=== PATIENT | male | born 1965 | race Caucasian/White ===

== ENCOUNTER 2017-01-04 10:50 | Observation (INO) | payer SELFPAY ==
[~2017-01-04] VITALS: Ht 177.8 cm; Wt 90.0 kg
[~2017-01-04 10:50] MED LIST: MMW SWISH-SWAL; ZITH250T PO
[2017-01-04 10:52] VITALS: BP 190/105; PULSE 108; RESP 20; TEMP 98.3; O2SAT 99
[2017-01-04 10:55] VITALS: BP 177/98; PULSE 106; RESP 18; TEMP 97.4; O2SAT 100
[2017-01-04] MEDS ORDERED: SUBO8MIS SL (11:05)
--- NOTE | 2017-01-04 11:17 | PD ---
HPI Chief Complaint: Numbness/Tingling Time Seen by Provider: 11:17 Travel History International Travel<30 days: No Contact w/Intl Traveler<30days: No Traveled to known affect area: No History of Present Illness HPI 51-year-old male with history of anxiety, tobacco dependency, on Suboxone for remote opiate addiction, presents to the emergency department for evaluation of left upper extremity weakness. Patient states he woke up at 5 AM this morning and his left arm was "asleep." He thought he had slept on it wrong however his symptoms have not improved. He states he is unable to move it regularly as he usually does and it "feels weird." Denies any pain. No chest Tightness. No difficulty breathing. Patient recalls no head trauma. He has not had a headache but he does report some blurred vision when he is "scanning a room." Denies any recent drug use. He denies any other significant medical history. He states he is under a lot of stress due to his being hospitalized at [facility] following a stroke. He has no other symptoms to report. [facility] Past Medical History Anxiety: Yes Diabetes: No Diminished Hearing: No Medical other: Yes (OPIOID ADDICTION PREVIOUSLY) Tetanus Vaccination: > 5 Years Influenza Vaccination: No Past Surgical History Tonsillectomy: Yes (ADENOIDS) Social History Alcohol Use: No Tobacco Use: Yes (1 PPD) Substance Use: No Allergies-Medications (Allergen,Severity, Reaction): Coded Allergies: No Known Allergies (Verified , 01/04/17) Reported Meds & Prescriptions Reported Meds & Active Scripts Active Reported Suboxone Sublingual Film (Buprenorphine-Naloxone Sublingual Film) 8-2 Mg Film 1 Film SL Unique ID number required: Review of Systems Except as stated in HPI: all other systems reviewed are Neg Physical Exam Narrative GENERAL: Well-nourished male patient, in no acute distress. Patient is ambulatory with a nonantalgic gait. SKIN: Focused skin assessment warm/dry. HEAD: Atraumatic. Normocephalic. EYES: Pupils equal and round. EOMI. No scleral icterus. No injection or drainage. ENT: No nasal bleeding or discharge. Mucous membranes pink and moist. NECK: Trachea midline. No JVD. CARDIOVASCULAR: Elevated rate and rhythm. No murmur appreciated. RESPIRATORY: No accessory muscle use. Clear to auscultation. Breath sounds equal bilaterally. GASTROINTESTINAL: Abdomen soft, non-tender, nondistended. Hepatic and splenic margins not palpable. MUSCULOSKELETAL: No obvious deformities. No clubbing. No cyanosis. No edema. NEUROLOGICAL: Awake and alert. Patient does have difficulty puffing out his left cheek however there are no other cranial nerve deficits and patient states it is "just a weird thing for him to do." Sensation is symmetrical. Patient has motor movement intact in the right upper and lower extremity. The left upper extremity has gross motor movement with significant decreased gas controller strength. No fine motor movement. Patient is unable to fully extend his left wrist. Normal speech. PSYCHIATRIC: Appropriate mood and affect; insight and judgment normal. Data Data Last Documented VS Vital Signs Date Time Temp Pulse Resp B/P Pulse Ox O2 Delivery O2 Flow Rate FiO2 01/04/17 11:37 18 100 Room Air 01/04/17 11:00 104 01/04/17 10:55 97.4 177/98 Orders Electrocardiogram (01/04/17 11:26) Prothrombin Time / Inr (Pt) (01/04/17 11:26) Act Partial Throm Time (Ptt) (01/04/17 11:26) Complete Blood Count With Diff (01/04/17 11:26) Comprehensive Metabolic Panel (01/04/17 11:26) Creatine Kinase (Cpk) (01/04/17 11:26) Drug Screen, Random Urine (01/04/17 11:26) Troponin I (01/04/17 11:26) Urinalysis - C+S If Indicated (01/04/17 11:26) Ct Brain W/O Iv Contrast(Rout) (01/04/17 11:26) Chest, Single Ap (01/04/17 11:26) Ecg Monitoring (01/04/17 11:26) Iv Access Insert/Monitor (01/04/17 11:26) Oximetry (01/04/17 11:26) Sodium Chloride 0.9% Flush (Ns Flush) (01/04/17 11:30) Mra Brain W/O Contrast (Cow) (01/04/17 ) Mri Brain W/O Contrast (01/04/17 ) Mri C Spine W/O Contrast (01/04/17 ) Admit Order (Ed Use Only) (01/04/17 13:24) Spine, Cervical Compl([id number]) (01/04/17 ) Labs Laboratory Tests Test 01/04/17 11:15 White Blood Count 7.6 TH/MM3 Red Blood Count 4.27 MIL/MM3 Hemoglobin 14.0 GM/DL Hematocrit 41.8 % Mean Corpuscular Volume 98.0 FL Mean Corpuscular Hemoglobin 32.8 PG Mean Corpuscular Hemoglobin 33.5 % Concent Red Cell Distribution Width 13.5 % Platelet Count 275 TH/MM3 Mean Platelet Volume 7.5 FL Neutrophils (%) (Auto) 57.8 % Lymphocytes (%) (Auto) 25.9 % Monocytes (%) (Auto) 11.8 % Eosinophils (%) (Auto) 3.6 % Basophils (%) (Auto) 0.9 % Neutrophils # (Auto) 4.4 TH/MM3 Lymphocytes # (Auto) 2.0 TH/MM3 Monocytes # (Auto) 0.9 TH/MM3 Eosinophils # (Auto) 0.3 TH/MM3 Basophils # (Auto) 0.1 TH/MM3 CBC Comment DIFF FINAL Differential Comment Prothrombin Time 10.0 SEC Prothromb Time International 0.9 RATIO Ratio Activated Partial 26.8 SEC Thromboplast Time Sodium Level 137 MEQ/L Potassium Level 3.9 MEQ/L Chloride Level 104 MEQ/L Carbon Dioxide Level 27.4 MEQ/L Anion Gap 6 MEQ/L Blood Urea Nitrogen 20 MG/DL Creatinine 1.01 MG/DL Estimat Glomerular Filtration 78 ML/MIN Rate Random Glucose 243 MG/DL Calcium Level 8.7 MG/DL Total Bilirubin 0.5 MG/DL Aspartate Amino Transf 18 U/L (AST/SGOT) Alanine Aminotransferase 40 U/L (ALT/SGPT) Alkaline Phosphatase 73 U/L Total Creatine Kinase 106 U/L Troponin I LESS THAN 0.02 NG/ML Total Protein 6.5 GM/DL Albumin 3.7 GM/DL [facility] Medical Decision Making Medical Screen Exam Complete: Yes Emergency Medical Condition: Yes Medical Record Reviewed: Yes Differential Diagnosis CVA versus TIA versus radiculopathy versus neuropathy versus electrolyte abnormality versus neoplasm versus psychosomatic Narrative Course 51-year-old male presents to the emergency department for evaluation left upper extremity deficit. Patient is ambulatory with no difficulty however he does have gross motor movement at the left upper extremity there is significant decrease in gas controller strength in the left upper extremity. Exam is otherwise without acute concern. Vital signs are stable. CT imaging of the brain is without acute intracranial abnormality. Chest x-rays with no acute disease. CBC and CMP are without acute concern. Glucose is 243, despite patient stating he has no diabetic history. Troponin is less than 0.02. I discussed the patient in my attending physician who agrees patient does not meet stroke alert criteria based on timeframe. MRI, MRA has been ordered. 1245 Call has been placed to 1305 Repeat call has been placed to 1325 MRI/MRA has resulted with no acute abnormality. I discussed with my attending who agrees with continued neurologic deficit, patient should be admitted for further evaluation/ possible TIA or c-spine etiology [address] Yang. He requests MRI of cervical spine be ordered. Patient will be admitted observation to [facility]. Diagnosis Primary Impression: Left arm weakness Additional Impression: Left upper extremity numbness Admitting Information Admitting Physician Requests: Observation Condition: Stable Mervat Alba Jan 04, 2017 11:17
[2017-01-04] MEDS ORDERED: SODIUM CHLORIDE 0.9% FLUSH 10 ML FLUSH IVF PRN (11:30)
[2017-01-04 11:37] VITALS: RESP 18; O2SAT 100
[2017-01-04 11:45] LABS: AUTOMATED NEUTROPHIL # 4.4 TH/MM3 (1.8-7.7); BASOPHIL # 0.1 TH/MM3 (0-0.2); BASOPHIL % 0.9 % (0.0-2.0); EOSINOPHIL # 0.3 TH/MM3 (0-0.4); EOSINOPHIL % 3.6 % (0.0-4.0); HEMATOCRIT 41.8 % (39.0-51.0); HEMO FLAGS DIFF FINAL; LYMPH % 25.9 % (9.0-44.0); MEAN CORPUSCULAR HEMOGLOBIN 32.8 PG (27.0-34.0); MEAN CORPUSCULAR HGB CONC 33.5 % (32.0-36.0); MONO % 11.8 % (0.0-8.0); NEUT % 57.8 % (16.0-70.0); PLATELET COUNT 275 TH/MM3 (150-450); RED BLOOD COUNT 4.27 MIL/MM3 (4.50-5.90); RED CELL DISTRIBUTION WIDTH 13.5 % (11.6-17.2); WHITE BLOOD COUNT 7.6 TH/MM3 (4.0-11.0)
--- NOTE | 2017-01-04 11:48 | RADRPT ---
EXAM DATE/TIME: 01/04/2017 11:22 [facility] COMPARISON: No previous studies available for comparison. INDICATIONS : Chest and left arm pain MEDICAL HISTORY : None. SURGICAL HISTORY : None. ENCOUNTER: Initial ACUITY: 1 day PAIN SCORE: 2/10 LOCATION: Bilateral chest FINDINGS: A single view of the chest demonstrates the lungs to be symmetrically aerated without evidence of mas s, infiltrate or effusion. The cardiomediastinal contours are unremarkable. Osseous structures are intact. Nonacute left fifth posterior rib fracture. CONCLUSION: No acute disease. Darien Culp MD on January 04, 2017 at 11:46 Board Certified Radiologist. This report was verified electronically.
--- NOTE | 2017-01-04 11:50 | RADRPT ---
EXAM DATE/TIME: 01/04/2017 11:34 [facility] COMPARISON: CT BRAIN W/O CONTRAST, January 18, 2010, 3:31. INDICATIONS : Blurred vision. Left sided weakness. RADIATION DOSE: 56.35 CTDIvol (mGy) MEDICAL HISTORY : Opoid addiction. SURGICAL HISTORY : None. ENCOUNTER: Initial ACUITY: 1 day PAIN SCALE: 0/10 LOCATION: Bilateral cranial TECHNIQUE: Multiple contiguous axial images were obtained of the head. Using automated exposure control and adj ustment of the mA and/or kV according to patient size, radiation dose was kept as low as reasonably a chievable to obtain optimal diagnostic quality images. DICOM format image data is available electro nically for review and comparison. FINDINGS: CEREBRUM: The ventricles are normal for age. No evidence of midline shift, mass lesion, hemorrhage or acute in farction. No extra-axial fluid collections are seen. POSTERIOR FOSSA: The cerebellum and brainstem are intact. The 4th ventricle is midline. The cerebellopontine angle i s unremarkable. EXTRACRANIAL: The visualized portion of the orbits is intact. SKULL: The calvaria is intact. No evidence of skull fracture. CONCLUSION: Normal examination for a patient of this age. Darien Cupl MD on January 04, 2017 at 11:47 Board Certified Radiologist. This report was verified electronically.
[2017-01-04 11:57] LABS: ANION GAP 6 MEQ/L (5-15); AST (GOT) 18 U/L (15-37); BICARBONATE 27.4 MEQ/L (21.0-32.0); BLOOD UREA NITROGEN 20 MG/DL (7-18); CHLORIDE 104 MEQ/L (98-107); GLOMERULAR FILTRATION RATE 78 ML/MIN (>89); POTASSIUM 3.9 MEQ/L (3.5-5.1); SODIUM (NA) 137 MEQ/L (136-145)
[2017-01-04 11:59] LABS: ALT (GPT) 40 U/L (12-78)
[2017-01-04 12:02] LABS: ALKALINE PHOSPHATASE 73 U/L (45-117); CREATINE KINASE 106 U/L (39-308); TOTAL BILIRUBIN ADULT 0.5 MG/DL (0.2-1.0)
[2017-01-04 12:07] LABS: APTT (PATIENT) 26.8 SEC (24.3-30.1); INTERNATIONAL NORMALIZED RATIO 0.9 RATIO
--- NOTE | 2017-01-04 12:59 | RADRPT ---
EXAM DATE/TIME: 01/04/2017 12:35 [facility] COMPARISON: MRI BRAIN W/O CONTRAST, January 04, 2017, 12:35. CT BRAIN W/O CONTRAST, January 04, 2017, 11:34. INDICATIONS : Left upper extremity weakness. MEDICAL HISTORY : None. SURGICAL HISTORY : None. ENCOUNTER: Initial ACUITY: 1 day PAIN SCORE: 0/10 LOCATION: cranial Please note a normal MRA of the brain does not entirely exclude the possibility of a small aneurysm, nor the possibility of distal intracranial vessel disease. TECHNIQUE: 3D time of flight MRA was performed. Source images, multiplanar STS MIP, and 3D volume MIP reconstru ctions were reviewed. FINDINGS: There is excellent visualization of the major intracranial arteries out to the second-order branch ve ssels. There is no evidence for aneurysm, vessel truncation or stenosis, and no evidence for vascula r malformation. CONCLUSION: Normal examination. Darien Culp MD on January 04, 2017 at 12:56 Board Certified Radiologist. This report was verified electronically.
--- NOTE | 2017-01-04 13:00 | RADRPT ---
EXAM DATE/TIME: 01/04/2017 12:35 [facility] COMPARISON: No previous studies available for comparison. INDICATIONS : Left upper extremity weakness. MEDICAL HISTORY : None. SURGICAL HISTORY : None. ENCOUNTER: Initial ACUITY: 1 day PAIN SCORE: 0/10 LOCATION: TECHNIQUE: Multiplanar, multisequence MRI of the brain was performed without contrast. FINDINGS: CEREBRUM: The ventricles are normal for age. No evidence of midline shift, mass lesion, hemorrhage or acute in farction. No extraaxial fluid collections are seen. The pituitary gland and suprasellar cistern are normal in configuration. WHITE MATTER: No significant signal abnormalities are seen in the white matter. POSTERIOR FOSSA: The cerebellum and brainstem are intact. The 4th ventricle is midline. The cerebellopontine angle is unremarkable. The cerebellar tonsils are normal in position. DIFFUSION IMAGING: No focal areas of restricted diffusion are seen. No evidence of acute infarction. EXTRACRANIAL: The visualized portions of the orbits and paranasal sinuses are unremarkable. CONCLUSION: Normal examination for a patient of this age. Krishan Alonso MD on January 04, 2017 at 12:56 Board Certified Radiologist. This report was verified electronically.
--- NOTE | 2017-01-04 14:43 | RADRPT ---
EXAM DATE/TIME: 01/04/2017 13:38 [facility] COMPARISON: No previous studies available for comparison. INDICATIONS : Left upper extremity weakness. MEDICAL HISTORY : None. SURGICAL HISTORY : None. ENCOUNTER: Initial ACUITY: 1 day PAIN SCORE: 0/10 LOCATION: Paraspinal TECHNIQUE: Multiplanar, multisequence MRI examination of the cervical spine was performed. FINDINGS: VERTEBRAE: Normal vertebral body height. Homogeneous marrow signal. ALIGNMENT: No evidence of subluxation. CORD: Normal configuration and signal. POST FOSSA: The cerebellar tonsils are normal in position. C2-C3: The thecal sac has a normal configuration. There is no evidence of disc herniation or spinal canal s tenosis. The neural foramina are patent bilaterally. C3-C4: Minimal disc bulge. C4-C5: The thecal sac has a normal configuration. There is no evidence of disc herniation or spinal canal s tenosis. The neural foramina are patent bilaterally. C5-C6: The thecal sac has a normal configuration. There is no evidence of disc herniation or spinal canal s tenosis. The neural foramina are patent bilaterally. C6-C7: The thecal sac has a normal configuration. There is no evidence of disc herniation or spinal canal s tenosis. The neural foramina are patent bilaterally. C7-T1: The thecal sac has a normal configuration. There is no evidence of disc herniation or spinal canal s tenosis. The neural foramina are patent bilaterally. CONCLUSION: 1. Minimal disc bulge at C3-4. No significant canal stenosis. No cord impingement or cord edema. No d irect nerve root compression. Krishan Alonso MD on January 04, 2017 at 14:38 Board Certified Radiologist. This report was verified electronically.
--- NOTE | 2017-01-04 14:46 | HHI.HP ---
HPI Service [facility] Primary Care Physician No Primary Care Physician Admission Diagnosis ACUTE LUE WEAKNESS; FINE MOTOR LOSS Diagnoses: Chief Complaint: Wrist drop Travel History International Travel<30 Days: No Contact w/Intl Traveler <30 Da: No Traveled to Known Affected Are: No History of Present Illness 51 years old male With No past medical history Presented to the ED complaining of Weakness in his left arm with tingling started when he woke up this morning. patient stated he follow sleep last night while he was sitting on a chair with a handrail while he was working on his eye pad, and patient woke up at 5:30 in the morning feeling numb in his left arm and he went to bed, when he woke up in the morning he noticed that he is not able to move his left arm and wrist and hand normally as the other arm, along with tingling in the fingers. Patient came to the ED, where he had an MRI MRA of the brain to rule out a stroke, both came back negative, patient denied any chest pain lightheaded dizziness, blurred vision, abdominal pain diarrhea or constipation Review of Systems all system reviewed, Was only positive for What is mention in HPI otherwise negative Past Family Social History Past Medical History Denied any history of hypertension HyperlipidemiaOr heart disease Past Surgical History Denied previous surgery Allergies: Coded Allergies: No Known Allergies (Verified , 01/04/17) Family History Breast and brain cancer in his mother Social History He drinks alcohol every other day, 1 pack per day smoking no illicit abuse drug Physical Exam Vital Signs Vital Signs Date Time Temp Pulse Resp B/P Pulse Ox O2 Delivery O2 Flow Rate FiO2 01/04/17 11:37 18 100 Room Air 01/04/17 11:00 104 18 100 Room Air 01/04/17 10:55 97.4 106 18 177/98 100 01/04/17 10:52 98.3 108 20 190/105 99 Room Air Physical Exam GENERAL: This is a well-nourished, well-developed patient, in no apparent distress. SKIN: No rashes, ecchymoses or lesions. Cool and dry. HEAD: Atraumatic. Normocephalic. No temporal or scalp tenderness. EYES: Pupils equal round and reactive. Extraocular motions intact. No scleral icterus. No injection or drainage. ENT: Nose without bleeding, purulent drainage or septal hematoma. Throat without erythema, tonsillar hypertrophy or exudate. Uvula midline. Airway patent. NECK: Trachea midline. No JVD or lymphadenopathy. Supple, nontender, no meningeal signs. CARDIOVASCULAR: Regular rate and rhythm without murmurs, gallops, or rubs. RESPIRATORY: Clear to auscultation. Breath sounds equal bilaterally. No wheezes , rales, or rhonchi. GASTROINTESTINAL: Abdomen soft, non-tender, nondistended. No hepato-splenomegaly , or palpable masses. No guarding. MUSCULOSKELETAL:Lower Extremities without clubbing, cyanosis, or edema. No joint tenderness, effusion, or edema noted. No calf tenderness. Negative Homans sign bilaterally.Right upper extremity normal range of motion, left upper extremity with Wrist drop, Weakness in the extensor muscles, with some Wall sensation on the dorsal surface of the hand NEUROLOGICAL: Awake and alert. Cranial nerves II through XII intact. Motor and sensory grossly within normal limits. Five out of 5 muscle strength in all muscle groups. Normal speech. Laboratory Laboratory Tests Test 01/04/17 11:15 White Blood Count 7.6 Red Blood Count 4.27 Hemoglobin 14.0 Hematocrit 41.8 Mean Corpuscular Volume 98.0 Mean Corpuscular Hemoglobin 32.8 Mean Corpuscular Hemoglobin 33.5 Concent Red Cell Distribution Width 13.5 Platelet Count 275 Mean Platelet Volume 7.5 Neutrophils (%) (Auto) 57.8 Lymphocytes (%) (Auto) 25.9 Monocytes (%) (Auto) 11.8 Eosinophils (%) (Auto) 3.6 Basophils (%) (Auto) 0.9 Neutrophils # (Auto) 4.4 Lymphocytes # (Auto) 2.0 Monocytes # (Auto) 0.9 Eosinophils # (Auto) 0.3 Basophils # (Auto) 0.1 CBC Comment DIFF FINAL Differential Comment Prothrombin Time 10.0 Prothromb Time International 0.9 Ratio Activated Partial 26.8 Thromboplast Time Sodium Level 137 Potassium Level 3.9 Chloride Level 104 Carbon Dioxide Level 27.4 Anion Gap 6 Blood Urea Nitrogen 20 Creatinine 1.01 Estimat Glomerular Filtration 78 Rate Random Glucose 243 Calcium Level 8.7 Total Bilirubin 0.5 Aspartate Amino Transf 18 (AST/SGOT) Alanine Aminotransferase 40 (ALT/SGPT) Alkaline Phosphatase 73 Total Creatine Kinase 106 Troponin I LESS THAN 0.02 Total Protein 6.5 Albumin 3.7 Result Diagram: 01/04/17 1115 01/04/17 1115 Imaging Last Impressions Head CT 01/04/17 1126 Signed Impressions: Service Date/Time: Wednesday, January 04, 2017 11:34 - CONCLUSION: Normal examination for a patient of this age. Darien Culp MD Chest X-Ray 01/04/17 1126 Signed Impressions: Service Date/Time: Wednesday, January 04, 2017 11:22 - CONCLUSION: No acute disease. Darien Culp MD Head Magnetic Resonance Angiography 01/04/17 0000 Signed Impressions: Service Date/Time: Wednesday, January 04, 2017 12:35 - CONCLUSION: Normal examination. Darien Culp MD Cervical Spine X-Ray 01/04/17 0000 Signed Impressions: Service Date/Time: Wednesday, January 04, 2017 14:01 - CONCLUSION: Normal examination for a patient of this age. Krishan Alonso MD Cervical Spine MRI 01/04/17 0000 Signed Impressions: Service Date/Time: Wednesday, January 04, 2017 13:38 - CONCLUSION: 1. Minimal disc bulge at C3-4. No significant canal stenosis. No cord impingement or cord edema. No direct nerve root compression. Krishan Alonso MD Brain MRI 01/04/17 0000 Signed Impressions: Service Date/Time: Wednesday, January 04, 2017 12:35 - CONCLUSION: Normal examination for a patient of this age. 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" physical exam is more consistent with this radial nerve injury, MRI MRA of the brain no stroke, MRI of the neck showed minimal bulging C3-C4 otherwise unremarkable, I discussed with the patient and with the mid level in the ED explained to him this is mostly irreversible injury, the ordered supported splint and patient advised to see his primary care physician for referral for physical therapy, I don't see further need to keep patient in house so he will be discharged after giving him a splint and being assessed by physical therapy Discussed Condition With Extensively with patient and ARNPFrom ED Discharge patient to home Condition on discharge: Improved Regular Diet as tolerated Ad Kendal activity Rx written:none Follow-up with primary care physician in 1-2 d, PT outpt Amber Yang MD Jan 04, 2017 14:46
[2017-01-04 14:51] VITALS: BP 162/92; PULSE 85; RESP 18; O2SAT 98
--- NOTE | 2017-01-04 14:53 | RADRPT ---
EXAM DATE/TIME: 01/04/2017 14:01 [facility] COMPARISON: No previous studies available for comparison. INDICATIONS : Left arm weakness and numbness. MEDICAL HISTORY : None. SURGICAL HISTORY : None. ENCOUNTER: Initial ACUITY: 1 day PAIN SCORE: 0/10 LOCATION: Left neck FINDINGS: Five view examination was performed. There is normal alignment and curvature of the vertebral bodies down to the level of C7. No evidence of fracture or subluxation. Vertebral body height is normal. The disc spaces are maintained. The prevertebral soft tissues are of normal thickness. The atlanto -axial articulation is intact. The bony neural foramen are patent bilaterally. CONCLUSION: Normal examination for a patient of this age. Krishan Alonso MD on January 04, 2017 at 14:50 Board Certified Radiologist. This report was verified electronically.
[2017-01-04] MEDS ORDERED: SODIUM CHLORIDE 0.9% FLUSH 10 ML FLUSH IV FLUSH PRN (15:00)
[2017-01-04] MEDS ORDERED: NALOXONE HCL 0.4 MG/ML AMP IV PRN (15:00)
[2017-01-04] MEDS ORDERED: SODIUM CHLORIDE 0.9% FLUSH 10 ML FLUSH IV FLUSH SCH (21:00)
--- NOTE | 2017-01-05 14:55 | EKG ---
Date Performed: 01/04/2017 Time Performed: 11:53:53 PTAGE: 51 years EKG: Sinus rhythm Since previous tracing, no significant change noted NORMAL ECG PREVIOUS TRACING : 01/18/2010 02.16 DOCTOR: Ronen Rome Interpretating Date/Time 01/05/2017 14:54:56
== END 2017-01-04 16:55 | disposition home or self-care (01) ==
LOC: NEPC 10:50 → NEDA 13:27
PROVIDERS: ADMIT Hospitalist; ATTEND Hospitalist
DX: R53.1 Weakness (principal); R20.2 Paresthesia of skin; R20.0 Anesthesia of skin; M21.332 Wrist drop, left wrist; H53.8 Other visual disturbances; F41.9 Anxiety disorder, unspecified; F17.200 Nicotine dependence, unspecified, uncomplicated
CPT/HCPCS: 70450; 70544; 70551; 71010; 72050; 72141; 80053; 82550; 84484; 85025; 85610; 85730; 93005; 99285; G0378; L3908